=== PATIENT | female | born 1960 | race Caucasian/White ===

== ENCOUNTER 2023-09-22 07:43 | Emergency (ER) | payer OTHER ==
[~2023-09-22] VITALS: Ht 152.4 cm; Wt 68.9 kg
[~2023-09-22 07:43] MED LIST: PROVENTIL HFA6.7 GM INH
[2023-09-22] MEDS ORDERED: ENALAPRILAT IV INJ 1.25 MG/ML VIAL IV STA ×2 (08:08→10:18)
[2023-09-22 08:32] LABS: BASOPHILS # (AUTO) 0.1 (0.0-0.1); BASOPHILS % 0.4 % (0.0-1.0); EOSINOPHILS % 0.3 % (0.0-6.0); HEMATOCRIT 52.3 % (34.2-44.1); HEMOGLOBIN 18.8 g/dL (12.0-16.0); LYMPHOCYTES # (AUTO) 1.1 (1.0-3.2); LYMPHOCYTES % 9.2 % (18.0-39.1); MEAN CORPUSCULAR HEMOGLOBIN 37.6 pg (28-32); MEAN CORPUSCULAR HGB CONC 35.9 g/dL (31-35); MEAN CORPUSCULAR VOLUME 104.6 fL (81-99); MONOCYTES # (AUTO) 0.8 (0.2-0.8); MONOCYTES % 6.9 % (4.4-11.3); NEUTROPHILS # (AUTO) 9.9 (2.1-6.9); NEUTROPHILS % 82.4 % (38.7-80.0); PLATELET COUNT 136 x10e3/uL (140-360); RED CELL DISTRIBUTION WIDTH 11.8 % (11.7-14.4); WHITE BLOOD COUNT 11.97 x10e3/uL (4.8-10.8)
[2023-09-22 08:56] LABS: ANION GAP 25.7 mmol/L (8-16); BILIRUBIN,TOTAL 1.7 mg/dL (0.2-1.2); CALCIUM 9.5 mg/dL (8.4-10.2); CREATININE, SERUM 0.78 mg/dL (0.57-1.11); POTASSIUM 3.7 mmol/L (3.5-5.1)
[2023-09-22 09:02] LABS: TROPONIN I 0.016 ng/mL (0-0.300)
[2023-09-22] MEDS ORDERED: LACTATED RINGER'S 1,000 ML IV ONE (09:45)
[2023-09-22] MEDS ORDERED: IOPAMIDOL 370 MG/ML 100 ML INFUS..BTL INJ ONE (10:22)
[2023-09-22] MEDS ORDERED: ENALAPRILAT IV INJ 1.25 MG/ML VIAL ONE (10:25)
[2023-09-22] MEDS ORDERED: ONDANSETRON HCL INJ 2MG/ML 2ML 2 MG/ML VIAL ONE (10:25)
[2023-09-22 10:29] VITALS: BP 193/121
[2023-09-22] MEDS ORDERED: ONDANSETRON HCL INJ 2MG/ML 2ML 2 MG/ML VIAL IV STA (10:30)
[2023-09-22 10:49] VITALS: O2SAT 94
== END 2023-09-22 11:11 | disposition home or self-care (01) ==
LOC: ER 07:50
DX: R06.02 Shortness of breath (principal); R20.2 Paresthesia of skin; I16.0 Hypertensive urgency; I10 Essential (primary) hypertension; J44.9 Chronic obstructive pulmonary disease, unspecified; Z20.822 Contact with and (suspected) exposure to COVID-19; R94.31 Abnormal electrocardiogram [ECG] [EKG]
CPT/HCPCS: 36415; 70450; 71045; 71260; 80053; 82550; 84484; 85025; 85379; 93005; 99284; J2405; J7121; Q9967; U0002

== ENCOUNTER 2024-06-27 11:08 | Emergency (ER) | payer OTHER ==
[~2024-06-27] VITALS: Ht 152.4 cm; Wt 61.2 kg
[~2024-06-27 11:08] MED LIST changes: +CELEXA20 MG PO
[2024-06-27 11:33] VITALS: PULSE 95; RESP 15; TEMP 98.3
[2024-06-27] MEDS: KETOROLAC TROMETHAMINE 30 MG/ML VIAL IM STA (11:48)
[2024-06-27] MEDS: HYDROCODONE/APAP 5MG-325MG TAB PO ONE (11:57)
[2024-06-27] MEDS ORDERED: HYDROCODON-ACE1 EA11 PO (12:37)
[2024-06-27 13:34] VITALS: BP 121/84; PULSE 84; RESP 18; TEMP 98.3; O2SAT 99
[2024-06-27] MEDS ORDERED: HYDROCODON-ACE1 EA10 PO (14:53)
== END 2024-06-27 12:55 | disposition home or self-care (01) ==
LOC: ER 11:45
DX: S42.252A Displaced fracture of greater tuberosity of left humerus, initial encounter for closed fracture (principal); W01.0XXA Fall on same level from slipping, tripping and stumbling without subsequent striking against object, initial encounter; Y93.9 Activity, unspecified; Y92.512 Supermarket, store or market as the place of occurrence of the external cause; I10 Essential (primary) hypertension; J44.9 Chronic obstructive pulmonary disease, unspecified; K21.9 Gastro-esophageal reflux disease without esophagitis; F32.A Depression, unspecified
CPT/HCPCS: 73030; 99284; J1885

== ENCOUNTER 2024-08-01 14:35 | Emergency (ER) | payer OTHER ==
[~2024-08-01] VITALS: Ht 152.4 cm; Wt 61.2 kg
[~2024-08-01 14:35] MED LIST changes: +HYDROCODON-ACE1 EA10 PO; +HYDROCODON-ACE1 EA11 PO
[2024-08-01] MEDS ORDERED: SODIUM CHLORIDE FLUSH 10 ML SYR IV PRN (15:00)
[2024-08-01] MEDS: SODIUM CHLORIDE 0.9% 1000ML 1,000 ML IV ONE ×2 (15:21→17:04)
[2024-08-01 15:41] LABS: BASOPHILS # (AUTO) 0.1 (0.0-0.1); BASOPHILS % 0.5 % (0.0-1.0); EOSINOPHILS # (AUTO) 0.1 (0.0-0.4); EOSINOPHILS % 0.9 % (0.0-6.0); HEMATOCRIT 34.3 % (34.2-44.1); HEMOGLOBIN 11.1 g/dL (12.0-16.0); LYMPHOCYTES % 8.6 % (18.0-39.1); MEAN CORPUSCULAR HGB CONC 32.4 g/dL (31-35); MEAN CORPUSCULAR VOLUME 111.4 fL (81-99); MONOCYTES # (AUTO) 1.2 (0.2-0.8); MONOCYTES % 10.6 % (4.4-11.3); NEUTROPHILS # (AUTO) 8.6 (2.1-6.9); NEUTROPHILS % 77.3 % (38.7-80.0); PLATELET COUNT 196 x10e3/uL (140-360); RED BLOOD COUNT 3.08 x10e6/uL (3.6-5.1); RED CELL DISTRIBUTION WIDTH 14.4 % (11.7-14.4); WHITE BLOOD COUNT 11.06 x10e3/uL (4.8-10.8)
[2024-08-01 16:28] LABS: ALBUMIN 3.4 g/dL (3.5-5.0); ALBUMIN/GLOBULIN RATIO 1.1 (0.8-2.0); BILIRUBIN,TOTAL 0.7 mg/dL (0.2-1.2); CALCIUM 9.1 mg/dL (8.4-10.2); CREATININE, SERUM 1.68 mg/dL (0.57-1.11); TOTAL PROTEIN 6.5 g/dL (6.5-8.1)
[2024-08-01 16:34] LABS: TROPONIN I 0.017 ng/mL (0-0.300)
[2024-08-01 18:07] VITALS: PULSE 74; RESP 17; TEMP 98.3; O2SAT 100
== END 2024-08-01 18:07 | disposition home or self-care (01) ==
LOC: ER 14:50
DX: R42 Dizziness and giddiness (principal); N17.9 Acute kidney failure, unspecified; I95.9 Hypotension, unspecified; J44.9 Chronic obstructive pulmonary disease, unspecified; K21.9 Gastro-esophageal reflux disease without esophagitis; F32.A Depression, unspecified
CPT/HCPCS: 36415; 71045; 80053; 83880; 84484; 85025; 94760; 99283; J7030